=== PATIENT | female | born 1995 | race Caucasian/White ===

== ENCOUNTER 2018-01-24 11:13 | Inpatient (IN) | payer MEDICAID ==
[2018-01-24 12:32] LABS: ADD MAN DIFF? NO
[2018-01-24 12:36] LABS: WHITE BLOOD COUNT 15.2 10^3/ul (4.8-10.8)
[2018-01-24 12:36] LABS: ABNORMAL IP MESSAGE 1; BASOPHILS % 0.1 % (0.0-2.0); EOSINOPHILS % 0.1 % (0.0-7.0); HEMATOCRIT 33.3 % (37.0-47.0); HEMOGLOBIN 10.9 g/dl (12.0-16.0); LYMPHOCYTES % 6.4 % (15.0-51.0); MEAN CORPUSCULAR HEMOGLOBIN 22.2 pg (29.0-33.0); MEAN CORPUSCULAR HGB CONC 32.7 g/dl (32.0-37.0); MONOCYTE # 2.3 10^3/ul (0.3-0.9); MONOCYTES % 14.9 % (0.0-11.0); NEUTROPHIL # 11.5 10^3/ul (1.6-7.5); NEUTROPHILS % 75.9 % (39.0-77.0); PLATELET COUNT 122 10^3/UL (140-415)
[2018-01-24 12:37] LABS: POSITIVE DIFF @See below
[2018-01-24 13:07] LABS: ALANINE AMINOTRANSFERASE 102 IU/L (13-69); ALBUMIN 3.6 g/dl (3.3-4.9); ALBUMIN/GLOBULIN RATIO 1.02; ALKALINE PHOSPHATASE 152 IU/L (42-121); ANION GAP 19 (8-16); ASPARTATE AMINO TRANSFERASE 105 IU/L (15-46); BILIRUBIN,TOTAL 1.1 mg/dl (0.2-1.3); BLOOD UREA NITROGEN 29 mg/dl (7-20); CALCIUM 8.1 mg/dl (8.4-10.2); CARBON DIOXIDE 23 mmol/L (21-31); CHLORIDE 89 mmol/L (97-110); CREATININE 2.12 mg/dl (0.44-1.00); GLUCOSE 98 mg/dl (70-220); POTASSIUM 3.1 mmol/L (3.5-5.1); SODIUM 128 mmol/L (135-144); TOTAL PROTEIN 7.1 g/dl (6.1-8.1)
[2018-01-24 13:10] LABS: AMPHETAMINE/METHAMPHETAMINE Negative (NEGATIVE); BARBITURATES Negative (NEGATIVE); BENZODIAZEPINES Positive (NEGATIVE); CANNABINOIDS Positive (NEGATIVE); COCAINE Negative (NEGATIVE); OPIATES Negative (NEGATIVE)
[2018-01-24 13:11] LABS: ACETAMINOPHEN < 10.0 ug/ml (10.0-30.0); ETHANOL < 10.0 mg/dl; SALICYLATE < 1.0 mg/dl (5.0-30.0)
[2018-01-24 14:08] LABS: ADD UMIC YES; UR ASCORBIC ACID NEGATIVE (NEGATIVE); UR BACTERIA FEW /HPF (NONE SEEN); UR BILIRUBIN (Dip) NEGATIVE (NEGATIVE); UR BLOOD (Dip) 2+ mg/dL (NEGATIVE); UR BUDDING YEAST MODERATE /HPF (NONE SEEN); UR CLARITY SLIGHTLY CLOUDY (CLEAR); UR COLOR AMBER (YELLOW); UR GLUCOSE (Dip) NEGATIVE (NEGATIVE); UR KETONES (Dip) NEGATIVE (NEGATIVE); UR LEUKOCYTE ESTERASE (Dip) 1+ Leu/ul (NEGATIVE); UR NITRITE (Dip) POSITIVE (NEGATIVE); UR RBC 0 /HPF (0-5); UR SPECIFIC GRAVITY (Dip) 1.009 (1.003-1.030); UR SQUAMOUS EPITHELIAL CELL FEW /HPF (FEW); UR TOTAL PROTEIN (Dip) 2+ mg/dl (NEGATIVE); UR UROBILINOGEN (Dip) 2+ mg/dL (NEGATIVE); UR WBC 84 /HPF (0-5)
[2018-01-24] MEDS ORDERED: ONDANSETRON 4 MG INJ IV (14:30)
[2018-01-24] MEDS: SOD CHLORIDE 0.9% 1,000 ML IV ×4 (14:33→22:09)
[2018-01-24] MEDS ORDERED: NACL 0.9% 3 ML SYG IV (15:00)
[2018-01-24] MEDS ORDERED: METOCLOPRAMIDE 10 MG INJ IV (15:00)
[2018-01-24] MEDS: CEFEPIME 1GM/50 ML (PMX) 50 ML IVPB ×2 (15:12→23:42)
[2018-01-24] MEDS: ONDANSETRON 4 MG INJ IV (15:12)
[2018-01-24] MEDS: POTASSIUM CHLORIDE (SR) 20 MEQ TAB PO (15:12)
[2018-01-24] MEDS: SODIUM CHLORIDE 0.9% 1L BAG IV* (15:13)
[2018-01-24 15:35] LABS: LACTIC ACID 1.4 mmol/L (0.5-2.0)
[2018-01-24 15:37] LABS: CREATININE,URINE RANDOM 71.25 mg/dl (20-320)
[2018-01-24 15:39] LABS: SODIUM,URINE RANDOM < 13 mmol/L (30-90)
[2018-01-24] MEDS ORDERED: LORAZEPAM 1 MG TAB PO (18:00)
[2018-01-24] MEDS: GABAPENTIN 300 MG CAP PO ×2 (19:06→22:09)
[2018-01-24] MEDS: DIPHENOXYLATE/ATROPINE TAB PO (19:14)
[2018-01-24 19:15] LABS: LACTIC ACID 2.5 mmol/L (0.5-2.0)
[2018-01-24] MEDS: ACETAMINOPHEN 325 MG TAB PO (19:52)
[2018-01-24 21:40] LABS: LACTIC ACID 1.2 mmol/L (0.5-2.0)
[2018-01-25] MEDS: SOD CHLORIDE 0.9% 1,000 ML IV ×6 (03:14→20:53)
[2018-01-25] MEDS: ACETAMINOPHEN 325 MG TAB PO ×3 (06:15→20:52)
[2018-01-25 06:18] LABS: ABNORMAL IP MESSAGE 1; HEMATOCRIT 26.6 % (37.0-47.0); HEMOGLOBIN 8.7 g/dl (12.0-16.0); MEAN CORPUSCULAR HEMOGLOBIN 22.4 pg (29.0-33.0); MEAN CORPUSCULAR HGB CONC 32.7 g/dl (32.0-37.0); MEAN CORPUSCULAR VOLUME 68.4 fl (82.0-101.0); RED BLOOD COUNT 3.89 10^6/ul (4.20-5.40); RED CELL DISTRIBUTION WIDTH 18.4 % (11.5-14.5)
[2018-01-25 06:27] LABS: ADD MAN DIFF? YES; PLATELET COUNT 75 10^3/UL (140-415); POSITIVE DIFF @See below
[2018-01-25 06:59] LABS: ALANINE AMINOTRANSFERASE 74 IU/L (13-69); ALBUMIN 2.5 g/dl (3.3-4.9); ALBUMIN/GLOBULIN RATIO 0.96; ALKALINE PHOSPHATASE 115 IU/L (42-121); ANION GAP 15 (8-16); ASPARTATE AMINO TRANSFERASE 70 IU/L (15-46); BILIRUBIN,INDIRECT 0.5 mg/dl (0-1.1); BILIRUBIN,TOTAL 0.5 mg/dl (0.2-1.3); BLOOD UREA NITROGEN 26 mg/dl (7-20); CALCIUM 7.1 mg/dl (8.4-10.2); CARBON DIOXIDE 20 mmol/L (21-31); CHLORIDE 99 mmol/L (97-110); CREATININE 1.76 mg/dl (0.44-1.00); GLUCOSE 100 mg/dl (70-220); PHOSPHORUS 2.1 mg/dl (2.5-4.9); POTASSIUM 3.3 mmol/L (3.5-5.1); SODIUM 131 mmol/L (135-144); TOTAL PROTEIN 5.1 g/dl (6.1-8.1)
[2018-01-25 07:16] LABS: HEPATITIS B SURFACE ANTIGEN NEGATIVE (NEGATIVE)
[2018-01-25 07:33] LABS: HEPATITIS B CORE ANTIBODY NEGATIVE (NEGATIVE); HEPATITIS C VIRAL ANTIBODY NEGATIVE (NEGATIVE)
[2018-01-25 07:40] LABS: HIV 1&2 ANTIBODY NEGATIVE (NEGATIVE)
[2018-01-25 08:13] LABS: ANISOCYTOSIS 1+ (0-0); BAND NEUTROPHILS #M 2.1 10^3/ul (0.0-0.6); BAND NEUTROPHILS % (M) 18 % (0-4); BURR CELLS 1+ (0-0); LYMPHOCYTES #M 0.3 10^3/ul (0.8-2.9); LYMPHOCYTES % (M) 3 % (15-51); MONOCYTES % (M) 9 % (0-11); PLATELET ESTIMATE DECREASED; POIKILOCYTOSIS 1+ (0-0); REACTIVE LYMPHOCYTES #M 0.2 10^3/ul (0.0-0.0); REACTIVE LYMPHOCYTES% (M) 2 % (0-0); SEG NEUT #M 8.4 10^3/ul (1.6-7.5); SEGMENTED NEUTROPHILS (M) % 68 % (39-77); SMUDGE%M 16 % (0-0)
[2018-01-25] MEDS: GABAPENTIN 300 MG CAP PO ×4 (08:25→20:52)
[2018-01-25] MEDS: ENOXAPARIN 40 MG/0.4 ML SYG SC (08:31)
[2018-01-25 08:44] LABS: HEPATITIS B SURFACE ANTIBODY NEGATIVE (NEGATIVE)
[2018-01-25] MEDS: POTASSIUM CHLORIDE (SR) 20 MEQ TAB PO (09:19)
[2018-01-25] MEDS: CEFEPIME 1GM/50 ML (PMX) 50 ML IVPB ×2 (10:44→20:51)
[2018-01-25] MEDS: LORAZEPAM 1 MG TAB PO (13:45)
[2018-01-26] MEDS: LORAZEPAM 1 MG TAB PO (02:41)
[2018-01-26] MEDS: ACETAMINOPHEN 325 MG TAB PO ×4 (03:04→22:05)
[2018-01-26] MEDS: GUAIFENESIN LA 600 MG TABSR PO (03:24)
[2018-01-26] MEDS: SOD CHLORIDE 0.9% 1,000 ML IV ×3 (03:27→10:32)
[2018-01-26] MEDS: ALBUTEROL/IPRATROPIUM (NEB) 3 ML AMP HHN ×2 (04:05→15:40)
[2018-01-26] MEDS: morphine 2 MG INJ IV (04:30)
[2018-01-26] MEDS: SOD CHLORIDE 0.9% 500 ML IV (04:30)
[2018-01-26 05:58] LABS: ABNORMAL IP MESSAGE 1; HEMATOCRIT 24.4 % (37.0-47.0); MEAN CORPUSCULAR HEMOGLOBIN 22.5 pg (29.0-33.0); MEAN CORPUSCULAR HGB CONC 32.8 g/dl (32.0-37.0); MEAN CORPUSCULAR VOLUME 68.7 fl (82.0-101.0); PLATELET COUNT 62 10^3/UL (140-415); RED BLOOD COUNT 3.55 10^6/ul (4.20-5.40); RED CELL DISTRIBUTION WIDTH 18.6 % (11.5-14.5)
[2018-01-26 06:11] LABS: ADD MAN DIFF? YES; POSITIVE DIFF @See below
[2018-01-26 06:50] LABS: ALANINE AMINOTRANSFERASE 78 IU/L (13-69); ALBUMIN 2.1 g/dl (3.3-4.9); ALBUMIN/GLOBULIN RATIO 0.87; ALKALINE PHOSPHATASE 147 IU/L (42-121); ANION GAP 11 (8-16); ASPARTATE AMINO TRANSFERASE 89 IU/L (15-46); BILIRUBIN,INDIRECT 0.4 mg/dl (0-1.1); BILIRUBIN,TOTAL 0.4 mg/dl (0.2-1.3); BLOOD UREA NITROGEN 16 mg/dl (7-20); CARBON DIOXIDE 17 mmol/L (21-31); CHLORIDE 110 mmol/L (97-110); CREATININE 1.46 mg/dl (0.44-1.00); GLUCOSE 106 mg/dl (70-220); MAGNESIUM 1.7 mg/dl (1.7-2.5); PHOSPHORUS 1.5 mg/dl (2.5-4.9); POTASSIUM 3.1 mmol/L (3.5-5.1); SODIUM 135 mmol/L (135-144); TOTAL PROTEIN 4.5 g/dl (6.1-8.1)
[2018-01-26] MEDS: CEFEPIME 1GM/50 ML (PMX) 50 ML IVPB ×2 (08:46→22:03)
[2018-01-26] MEDS: POTASSIUM CHLORIDE (SR) 20 MEQ TAB PO (08:46)
[2018-01-26] MEDS: GABAPENTIN 300 MG CAP PO ×4 (08:46→22:03)
[2018-01-26] MEDS: ENOXAPARIN 40 MG/0.4 ML SYG SC (09:00)
[2018-01-26 10:14] LABS: ANISOCYTOSIS 2+ (0-0); BAND NEUTROPHILS #M 0.6 10^3/ul (0.0-0.6); BAND NEUTROPHILS % (M) 5 % (0-4); BASOPHIL #M 0.1 10^3/ul (0.0-0.0); BASOPHILS % (M) 1 % (0-2); BURR CELLS 3+ (0-0); GIANT THROMBO% (M) 4 % (0-0); LYMPHOCYTES #M 0.9 10^3/ul (0.8-2.9); LYMPHOCYTES % (M) 7 % (15-51); MICROCYTOSIS 2+ (0-0); MONOCYTE #M 0.6 10^3/ul (0.3-0.9); MONOCYTES % (M) 5 % (0-11); OVALOCYTES 1+ (0-0); PLASMA CELLS #M 0.1 10^3/ul (0.0-0.0); PLASMAC%(M) 1 % (0); PLATELET ESTIMATE DECREASED; PLATELET MORPHOLOGY COMMENT @See below; POIKILOCYTOSIS 3+ (0-0); SEG NEUT #M 10.6 10^3/ul (1.6-7.5); SEGMENTED NEUTROPHILS (M) % 81 % (39-77); SMUDGE%M 6 % (0-0)
[2018-01-27] MEDS: ACETAMINOPHEN 325 MG TAB PO ×3 (04:26→22:41)
[2018-01-27] MEDS: ALBUTEROL/IPRATROPIUM (NEB) 3 ML AMP HHN (05:10)
[2018-01-27 06:57] LABS: ADD MAN DIFF? NO
[2018-01-27 07:05] LABS: WHITE BLOOD COUNT 13.5 10^3/ul (4.8-10.8)
[2018-01-27 07:05] LABS: ABNORMAL IP MESSAGE 1; BASOPHILS % 0.1 % (0.0-2.0); EOSINOPHILS # 0.1 10^3/ul (0.0-0.5); EOSINOPHILS % 0.7 % (0.0-7.0); HEMOGLOBIN 7.8 g/dl (12.0-16.0); LYMPHOCYTES # 1.8 10^3/ul (0.8-2.9); LYMPHOCYTES % 13.5 % (15.0-51.0); MEAN CORPUSCULAR HEMOGLOBIN 22.4 pg (29.0-33.0); MEAN CORPUSCULAR HGB CONC 32.5 g/dl (32.0-37.0); MONOCYTE # 1.1 10^3/ul (0.3-0.9); MONOCYTES % 7.8 % (0.0-11.0); NEUTROPHIL # 10.3 10^3/ul (1.6-7.5); NEUTROPHILS % 76.6 % (39.0-77.0); PLATELET COUNT 96 10^3/UL (140-415); RED BLOOD COUNT 3.48 10^6/ul (4.20-5.40); RED CELL DISTRIBUTION WIDTH 19.2 % (11.5-14.5)
[2018-01-27 07:13] LABS: POSITIVE DIFF @See below
[2018-01-27 07:25] LABS: ALANINE AMINOTRANSFERASE 63 IU/L (13-69); ALBUMIN 2.3 g/dl (3.3-4.9); ALBUMIN/GLOBULIN RATIO 0.92; ALKALINE PHOSPHATASE 109 IU/L (42-121); ANION GAP 15 (8-16); ASPARTATE AMINO TRANSFERASE 40 IU/L (15-46); BILIRUBIN,INDIRECT 0.3 mg/dl (0-1.1); BILIRUBIN,TOTAL 0.3 mg/dl (0.2-1.3); BLOOD UREA NITROGEN 13 mg/dl (7-20); CALCIUM 7.9 mg/dl (8.4-10.2); CARBON DIOXIDE 21 mmol/L (21-31); CHLORIDE 106 mmol/L (97-110); CREATININE 1.45 mg/dl (0.44-1.00); GLUCOSE 118 mg/dl (70-220); MAGNESIUM 1.9 mg/dl (1.7-2.5); PHOSPHORUS 2.6 mg/dl (2.5-4.9); POTASSIUM 3.7 mmol/L (3.5-5.1); SODIUM 138 mmol/L (135-144); TOTAL PROTEIN 4.8 g/dl (6.1-8.1)
[2018-01-27] MEDS: ONDANSETRON 4 MG INJ IV (08:59)
[2018-01-27] MEDS: CEFEPIME 1GM/50 ML (PMX) 50 ML IVPB ×2 (08:59→20:32)
[2018-01-27] MEDS: GABAPENTIN 300 MG CAP PO ×4 (09:00→20:33)
[2018-01-27] MEDS: DULOXETINE 30 MG CAP DR PO (09:00)
[2018-01-27] MEDS: ENOXAPARIN 40 MG/0.4 ML SYG SC (09:52)
[2018-01-27] MEDS: LORAZEPAM 1 MG TAB PO (17:21)
[2018-01-27] MEDS: SOD CHLORIDE 0.9% 250 ML IV* (19:01)
[2018-01-27 22:33] LABS: IMMEDIATE SPIN CROSSMATCH 1 1
[2018-01-27] MEDS: DIPHENHYDRAMINE 25 MG CAP PO (22:41)
[2018-01-28 06:27] LABS: HEMATOCRIT 27.6 % (37.0-47.0); HEMOGLOBIN 9.1 g/dl (12.0-16.0)
[2018-01-28] MEDS: ACETAMINOPHEN 325 MG TAB PO (07:51)
[2018-01-28] MEDS: CEFEPIME 1GM/50 ML (PMX) 50 ML IVPB ×2 (08:12→21:00)
[2018-01-28] MEDS: GABAPENTIN 300 MG CAP PO ×4 (08:13→20:38)
[2018-01-28] MEDS: ENOXAPARIN 40 MG/0.4 ML SYG SC (08:13)
[2018-01-28] MEDS: DULOXETINE 30 MG CAP DR PO (08:13)
[2018-01-28] MEDS: ONDANSETRON 4 MG INJ IV (15:08)
[2018-01-28] MEDS: LORAZEPAM 1 MG TAB PO (15:08)
[2018-01-28] MEDS: ONDANSETRON 4 MG TAB PO (15:16)
[2018-01-28 15:34] LABS: ADD MAN DIFF? NO
[2018-01-28 15:38] LABS: ABNORMAL IP MESSAGE 1; BASOPHILS % 0.2 % (0.0-2.0); EOSINOPHILS # 0.1 10^3/ul (0.0-0.5); EOSINOPHILS % 1.1 % (0.0-7.0); HEMATOCRIT 30.2 % (37.0-47.0); HEMOGLOBIN 9.7 g/dl (12.0-16.0); LYMPHOCYTES # 2.2 10^3/ul (0.8-2.9); LYMPHOCYTES % 21.6 % (15.0-51.0); MEAN CORPUSCULAR HEMOGLOBIN 23.2 pg (29.0-33.0); MEAN CORPUSCULAR HGB CONC 32.1 g/dl (32.0-37.0); MEAN CORPUSCULAR VOLUME 72.1 fl (82.0-101.0); MONOCYTE # 0.8 10^3/ul (0.3-0.9); MONOCYTES % 7.9 % (0.0-11.0); NEUTROPHIL # 6.8 10^3/ul (1.6-7.5); NEUTROPHILS % 66.9 % (39.0-77.0); PLATELET COUNT 97 10^3/UL (140-415); RED BLOOD COUNT 4.19 10^6/ul (4.20-5.40); RED CELL DISTRIBUTION WIDTH 21.2 % (11.5-14.5)
[2018-01-28 15:38] LABS: WHITE BLOOD COUNT 10.2 10^3/ul (4.8-10.8)
[2018-01-28 15:43] LABS: POSITIVE DIFF @See below
[2018-01-28 22:29] LABS: OCCULT BLOOD STOOL NEGATIVE (NEGATIVE)
[2018-01-29] MEDS: LORAZEPAM 1 MG TAB PO (08:13)
[2018-01-29] MEDS: DULOXETINE 30 MG CAP DR PO (08:13)
[2018-01-29] MEDS: GABAPENTIN 300 MG CAP PO ×4 (08:13→20:36)
[2018-01-29] MEDS: CEFEPIME 1GM/50 ML (PMX) 50 ML IVPB ×3 (08:18→20:36)
[2018-01-29] MEDS: LEVOFLOXACIN 750 MG TABLET PO (10:06)
[2018-01-29] MEDS: ONDANSETRON 4 MG TAB PO (12:34)
[2018-01-30] MEDS: ONDANSETRON 4 MG TAB PO (05:56)
[2018-01-30 07:01] LABS: BLOOD UREA NITROGEN 15 mg/dl (7-20)
[2018-01-30 07:01] LABS: CREATININE 1.04 mg/dl (0.44-1.00)
[2018-01-30] MEDS: CEFEPIME 1GM/50 ML (PMX) 50 ML IVPB ×2 (09:42→20:56)
[2018-01-30] MEDS: GABAPENTIN 300 MG CAP PO ×4 (09:42→20:56)
[2018-01-30] MEDS: DULOXETINE 30 MG CAP DR PO (09:42)
[2018-01-30] MEDS: LORAZEPAM 1 MG TAB PO (14:26)
[2018-01-31] MEDS: ONDANSETRON 4 MG INJ IV (08:40)
[2018-01-31] MEDS: DULOXETINE 30 MG CAP DR PO (09:24)
[2018-01-31] MEDS: GABAPENTIN 300 MG CAP PO ×3 (09:24→18:12)
[2018-01-31] MEDS: CEFEPIME 1GM/50 ML (PMX) 50 ML IVPB (09:24)
[2018-01-31] MEDS: LORAZEPAM 1 MG TAB PO (13:15)
[2018-01-31] MEDS: ONDANSETRON 4 MG TAB PO (18:14)
== END 2018-01-31 18:35 | DRG 872 ==
LOC: PP2 01-25 19:03 → E/R 11:13 → PP2 20:30 → MS4 14:27
DX: A41.51 Sepsis due to Escherichia coli [E. coli] (principal); N39.0 Urinary tract infection, site not specified; E87.2 Acidosis; N17.9 Acute kidney failure, unspecified; R45.851 Suicidal ideations; E87.1 Hypo-osmolality and hyponatremia; F33.2 Major depressive disorder, recurrent severe without psychotic features; F19.239 Other psychoactive substance dependence with withdrawal, unspecified; N12 Tubulo-interstitial nephritis, not specified as acute or chronic; D69.6 Thrombocytopenia, unspecified; F15.10 Other stimulant abuse, uncomplicated; F11.10 Opioid abuse, uncomplicated; E86.0 Dehydration; E87.6 Hypokalemia; F43.29 Adjustment disorder with other symptoms; B96.20 Unspecified Escherichia coli [E. coli] as the cause of diseases classified elsewhere
CPT/HCPCS: 36415; 36430; 71045; 74176; 76700; 80053; 80307; 81001; 81003; 82270; 82540; 82565; 83605; 83735; 84100; 84155; 84300; 84520; 84703; 85014; 85018; 85025; 86703; 86704; 86706; 86708; 86709; 86803; 86850; 86900; 86901; 86920; 87040; 87086; 87340; 93005; 94640; 94664; 96374; 96375; 99291-25